=== PATIENT | female | born 1975 | race Caucasian/White ===

== ENCOUNTER 2016-12-20 11:57 | Emergency (ER) | payer BC, OTHER ==
[2016-12-20 12:05] VITALS: BP 141/99
[2016-12-20] MEDS ORDERED: Sodium Chloride 0.9% 10 ML Syringe FLUSH PRN ×2 (12:12→12:37)
--- NOTE | 2016-12-20 12:18 | EDM.PDOC ---
ED HPI ENT - General Chief Complaint: ENT Problem Stated Complaint: SORE THROAT Time Seen by Provider: 12/20/16 12:05 Source of Information: Reports: Patient, Provider History Limitations: Reports: No limitations - History of Present Illness INITIAL COMMENTS - FREE TEXT/NARRATIVE: The patient was sent over from [facility]. She noticed a lump on the left side of her anterior neck. She has some discomfort when she swallows. She has no trouble breathing. She has had some right ear pain, on and off fevers for a few days. She has noticed some fatigue, dry skin, and weight gain over the past 6 months. Her mother and father both had thyroid problems. Labs were done there that include CBC, CMP, strep, mono, TSH and free T4. Her WBC was slightly elevated at 11.4. Her strep and mono were both negative. Her TSH was not back yet. Timing/Duration: Reports: Day(s): (2) Severity: moderate Location: Reports: throat (Left side of her neck) Quality: Reports: Pressure Improves with: Reports: None Worsens with: Reports: Other (Swallowing) Associated Symptoms: Reports: fever/chills. Denies: cough, nausea/vomiting - Related Data Allergies/ADRs: Allergies Allergy/AdvReac Type Severity Reaction Status Date / Time acetaminophen [From Vicodin] Allergy Itching Verified 12/20/16 12:21 hydrocodone [From Vicodin] Allergy Itching Verified 12/20/16 12:21 Home Meds: Home Meds B1/B2/Niacin/B12/Protease [B-Complex with B-12 Tablet] 1 tab PO DAILY 12/20/16 [ History] FLUoxetine [PROzac] 20 mg PO DAILY 12/20/16 [History] Hydrochlorothiazide 50 mg PO DAILY 12/20/16 [History] L.acidoph,Paracasei, B.lactis [Probiotic] 1 tab PO DAILY 12/20/16 [History] LORazepam [Ativan] 0.5 mg PO Q4H PRN 12/20/16 [History] Lisinopril 5 mg PO DAILY 12/20/16 [History] Multivitamin [Multivitamins] 1 tab PO DAILY 12/20/16 [History] Olopatadine [Patanol 0.1% Ophth Soln] 1 drop EYEBOTH DAILY 12/20/16 [History] Past Medical History Cardiovascular History: Reports: Hypertension 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: Social & Family History - Tobacco Use Smoking Status *Q: Current Every Day Smoker Years of Tobacco use: 3 Packs/Tins Daily: 0.5 Used Tobacco, but Quit: No Second Hand Smoke Exposure: No - Caffeine Use Caffeine Use: Reports: Coffee, Soda, Tea - Recreational Drug Use Recreational Drug Use: No ED ROS ENT - Review of Systems Review Of Systems: See Below Constitutional: Reports: fever (None now) HEENT: Reports: Other (Discomfort swallowing and a lump on the left anterior neck) Respiratory: Reports: No Symptoms Cardiovascular: Reports: No symptoms Endocrine: Reports: no symptoms GI/Abdominal: Reports: No symptoms : Reports: no symptoms Musculoskeletal: Reports: no symptoms Skin: Reports: no symptoms Neurological: Reports: No Symptoms ED EXAM, ENT - Physical Exam Exam: See Below Exam Limited By: No limitations General Appearance: alert, no apparent distress Ears: normal external exam Nose: normal inspection Mouth/Throat: Normal inspection Head: atraumatic, normocephalic Neck: other (3cm mass to the left lower anterior neck) Respiratory/Chest: no respiratory distress, lungs clear, normal breath sounds Cardiovascular: regular rate, rhythm, no edema, no murmur GI/Abdominal: soft, non tender, no organomegaly, no mass Extremities: normal inspection Course - Vital Signs Last Recorded V/S: Last Vital Signs Temp 97.8 F 12/20/16 12:03 Pulse 85 12/20/16 12:03 Resp 18 12/20/16 12:03 BP 141/99 H 12/20/16 12:03 Pulse Ox 98 12/20/16 12:03 - Orders/Labs/Meds Orders: Active Orders 24 hr Category Date Time Status Peripheral IV Care [RC] . DIRECTED Care 12/20/16 12:13 Active Soft Tissue Neck w Cont [CT] Stat Exams 12/20/16 12:13 Taken Thyroid or Neck (non vasc) [Head Neck Soft Tissue Bi] [ Exams 12/20/16 13:56 Taken US] Stat Sodium Chloride 0.9% [Saline Flush] Med 12/20/16 12:12 Active 10 ml FLUSH ASDIRECTED PRN Sodium Chloride 0.9% [Saline Flush] Med 12/20/16 12:37 Active 10 ml FLUSH ONETIME PRN Peripheral IV Insertion Adult [OM.PC] Routine Oth 12/20/16 12:12 Ordered Medication Orders Sodium Chloride (Saline Flush) 10 ml FLUSH ASDIRECTED PRN PRN Reason: Keep Vein Open Last Admin: 12/20/16 12:54 Dose: 10 ml Sodium Chloride (Saline Flush) 10 ml FLUSH ONETIME PRN PRN Reason: IV FLUSH Last Admin: 12/20/16 12:51 Dose: 10 ml Labs: Laboratory Tests 12/20/16 Range/Units 12:15 TSH 3rd Generation 1.067 (0.358-3.74) uIU/mL Meds: Medications Generic Name Dose Route Start Last Admin Trade Name Freq PRN Reason Stop Dose Admin Sodium Chloride 10 ml 12/20/16 12:12 12/20/16 12:54 Saline Flush FLUSH 10 ml ASDIRECTED PRN Administration Keep Vein Open Sodium Chloride 10 ml 12/20/16 12:37 12/20/16 12:51 Saline Flush FLUSH 10 ml ONETIME PRN Administration IV FLUSH Discontinued Medications Generic Name Dose Route Start Last Admin Trade Name Freq PRN Reason Stop Dose Admin Iopamidol 100 ml 12/20/16 12:37 12/20/16 12:51 Isovue-300 (61%) IVPUSH 12/20/16 12:38 80 ml ONETIME ONE Administration - Re-Assessments/Exams Free Text/Narrative Re-Assessment/Exam: 12/20/16 12:19 I have ordered an IV, TSH and I will get a CT of her neck with IV contrast. 12/20/16 15:44 Her TSH is normal at 1.067. The CT of her neck shows thyroid hypodensity may represent a cyst or nodule. Further evaluation with US might be helpful, if clinically indicated. Mild nonspecific pharyngitis. Mild nonspecific reactive cervical adenopathy. I ordered an US of her thyroid and it showed left thyroid lobe cysts. There is a large cyst in the mid lobe measuring 2 X 1.9 X 1.8cm. There is a small amount of debris within. There is a smaller hypoechogenicty in the inferior lobe measuring 4 x 2 x 4mm. This also probably represents a cyst. I called Dr Lara and he can see the patient in clinic this week. Departure - Departure Time of Disposition: 15:50 Disposition: Home, Self-Care Condition: good Clinical Impression: Viral pharyngitis, Thyroid cyst Referrals: Balta Lara MD [Physician] - 2 Days Forms: ED Department Discharge Additional Instructions: Take motrin or tylenol for any fever or pain. Follow up with Dr Lara in the next couple of days. Please return if you are worse with more of a fever or trouble swallowing or breathing. - My Orders Last 24 Hours: My Active Orders 12/20/16 12:12 Sodium Chloride 0.9% [Saline Flush] 10 ml FLUSH ASDIRECTED PRN Peripheral IV Insertion Adult [OM.PC] Routine 12/20/16 12:13 Peripheral IV Care [RC] . DIRECTED Soft Tissue Neck w Cont [CT] Stat 12/20/16 12:37 Sodium Chloride 0.9% [Saline Flush] 10 ml FLUSH ONETIME PRN 12/20/16 13:56 Thyroid or Neck (non vasc) [Head Neck Soft Tissue Bi] [US] Stat - Assessment/Plan Last 24 Hours: My Active Orders 12/20/16 12:12 Sodium Chloride 0.9% [Saline Flush] 10 ml FLUSH ASDIRECTED PRN Peripheral IV Insertion Adult [OM.PC] Routine 12/20/16 12:13 Peripheral IV Care [RC] . DIRECTED Soft Tissue Neck w Cont [CT] Stat 12/20/16 12:37 Sodium Chloride 0.9% [Saline Flush] 10 ml FLUSH ONETIME PRN 12/20/16 13:56 Thyroid or Neck (non vasc) [Head Neck Soft Tissue Bi] [US] Stat
[2016-12-20] MEDS ORDERED: Iopamidol 612 MG/ML 100 ML Bottle IVPUSH ONE (12:37)
--- NOTE | 2016-12-21 07:43 | CT ---
CT neck Technique: Multiple axial sections through the neck were obtained. Intravenous contrast was utilized. Findings: Large low density nodule identified within the left lobe of the thyroid gland. This finding measures approximately 2.1 cm in greatest diameter. Visualized sinuses show minimal mucosal thickening with the left side of the sphenoid sinus. Minimal mucosal thickening seen inferiorly within the left maxillary sinus. Submandibular and parotid salivary glands appear within normal limits. Artifact from dental hardware is seen. There appears to be slight swelling within the oropharynx. Epiglottis is normal. Small scattered lymph nodes are seen believed to be within normal limits. Bone window settings appear within normal limits for the patient's age. Visualized lung apices are clear. Impression: 1. 2.1 cm nodule within the left lobe of the thyroid gland. 2. Mild soft tissue swelling within the oropharynx. 3. Other incidental findings as noted above. Diagnostic code #3 I agree with preliminary report issued by [facility] (preliminary report dictated on 12/20/16, 2:30 PM Central Time)
--- NOTE | 2016-12-21 07:43 | US ---
Thyroid ultrasound: Multiple real-time images of the thyroid gland were obtained. Comparison: Previous CT neck exam performed on the same date. Cystic nodule is seen within the left lobe of the thyroid gland measuring 1.9 cm in greatest dimension. Smaller hypoechoic nodule is seen more inferiorly within the left lobe measuring 3.5 mm. Right lobe is unremarkable. Measurements: Right lobe: 4.9 x 1.5 x 1.9 cm Left lobe: 4.9 x 2.0 x 2.3 cm Isthmus thickness: 2 mm Impression: 1. Cystic nodule within the left lobe of thyroid gland measuring 1.9 cm correlating to low density nodule on CT exam. 2. Smaller hypoechoic nodule inferiorly measuring 3.5 mm most likely representing an additional thyroid cyst. Diagnostic code #3 I agree with preliminary report issued by [email or web address] (preliminary report dictated on 12/20/16, 4:23 PM Central Time)
== END 2016-12-20 16:00 | disposition home or self-care (01) ==
LOC: JD.ED 11:57
DX: J02.9 Acute pharyngitis, unspecified (principal); E04.1 Nontoxic single thyroid nodule; F17.200 Nicotine dependence, unspecified, uncomplicated; I10 Essential (primary) hypertension; Z79.899 Other long term (current) drug therapy; Z88.6 Allergy status to analgesic agent
CPT/HCPCS: 36415; 70491; 76536; 84443; 99284; J7050; Q9967; 99282

== ENCOUNTER 2017-12-09 10:34 | Emergency (ER) | payer OTHER, BC ==
[2017-12-09 10:47] VITALS: BP 126/88
[2017-12-09] MEDS ORDERED: Ondansetron 4 MG Tab.DIS PO ONE (10:53)
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
--- NOTE | 2017-12-09 11:36 | CT ---
Head CT Technique: Multiple axial sections through the brain were obtained. Intravenous contrast was not utilized. Comparison: No previous intracranial imaging. Findings: Ventricles along with basal cisterns and sulci over convexities are within normal limits for the patient's age. No abnormal parenchymal densities are seen. No evidence of intracranial hemorrhage. No midline shift or mass effect is seen. Bone window settings were reviewed which shows no acute calvarial abnormality. Visualized sinuses are clear. Impression: 1. Nothing acute is seen on noncontrast head CT exam. Diagnostic code #1
--- NOTE | 2017-12-09 11:36 | CT ---
CT cervical spine Technique: Multiple axial sections were obtained from above the C1 inferiorly to the bottom of T1. Reconstructed coronal and sagittal images were reviewed. Comparison: Previous neck CT of 05/20/13. Findings: Posterior skull base is intact. Vertebral body heights and disc spaces are maintained. Minimal calcification is seen off the anterior inferior endplates of C4 and C5 which is incidental. No fracture is seen. No bony central or bony neural foraminal stenosis is seen. No abnormal subluxation is seen on the reconstructed sagittal images. Cysts are noted within the left mandibular condyle which are felt to be degenerative in etiology. Impression: 1. Nothing acute is seen on CT study of the cervical spine. Other nonacute findings as noted above. Diagnostic code #2
[2017-12-09] MEDS ORDERED: Ibuprofen 600 MG Tab PO ONE (12:07)
[2017-12-09] MEDS ORDERED: predniSONE 20 MG Tab PO ONE (12:09)
== END 2017-12-09 12:30 | disposition home or self-care (01) ==
LOC: JD.ED 10:34
DX: S13.9XXA Sprain of joints and ligaments of unspecified parts of neck, initial encounter (principal); I10 Essential (primary) hypertension; V44.9XXA Unspecified car occupant injured in collision with heavy transport vehicle or bus in traffic accident, initial encounter; Y92.413 State road as the place of occurrence of the external cause; Z88.5 Allergy status to narcotic agent; Z88.6 Allergy status to analgesic agent; Z79.899 Other long term (current) drug therapy; Z87.891 Personal history of nicotine dependence
CPT/HCPCS: 70450; 72125; 99284; A9270; 99283

== ENCOUNTER 2017-12-11 12:22 | Emergency (ER) | payer OTHER, BC ==
[2017-12-11 12:39] VITALS: BP 110/83
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
[2017-12-11] MEDS ORDERED: Sodium Chloride 0.9% 10 ML Syringe FLUSH PRN (13:39)
[2017-12-11] MEDS ORDERED: Haloperidol Lactate 5 MG/ML SDV IV ONE (13:39)
[2017-12-11] MEDS ORDERED: Sodium Chloride 0.9% 500 ML IV ONE (13:40)
[2017-12-11] MEDS ORDERED: Metoclopramide 10 MG/2 ML SDV IVPUSH ONE (13:40)
[2017-12-11] MEDS ORDERED: diphenhydrAMINE 50 MG/ML SDV IVPUSH ONE (13:40)
[2017-12-11] MEDS ORDERED: Ondansetron 4 MG/2 ML SDV IVPUSH ONE (13:46)
--- NOTE | 2017-12-11 14:26 | CT ---
Head CT Technique: Multiple axial sections through the brain were obtained. Intravenous contrast was not utilized. Comparison: Prior head CT study of 12/09/17. Findings: Ventricles along with basal cisterns and sulci over the convexities are within normal limits for the patient's age. No abnormal parenchymal densities are seen. No evidence of intracranial hemorrhage. No midline shift or mass effect is seen. Bone window settings were reviewed which shows no acute calvarial abnormality. Visualized sinuses are clear. Impression: 1. Nothing acute is seen on noncontrast head CT exam. No significant change is seen from previous head CT exam. Diagnostic code #1
== END 2017-12-11 14:59 | disposition home or self-care (01) ==
LOC: JD.ED 12:22
DX: S06.0X9A Concussion with loss of consciousness of unspecified duration, initial encounter (principal); I10 Essential (primary) hypertension; V49.60XA Unspecified car occupant injured in collision with unspecified motor vehicles in traffic accident, initial encounter; Z88.5 Allergy status to narcotic agent; Z88.8 Allergy status to other drugs, medicaments and biological substances; Z79.899 Other long term (current) drug therapy; Y92.488 Other paved roadways as the place of occurrence of the external cause
CPT/HCPCS: 70450; 96361; 96374; 96375; 99284; J1200; J1630; J2405; J7040; J7050